=== PATIENT | male | born 1935 | race Caucasian/White ===

== ENCOUNTER 2016-12-14 17:39 | Inpatient (IN) ==
[2016-12-14] MEDS ORDERED: ZOFRAN IV PRN (18:31)
[2016-12-14] MEDS ORDERED: DESYREL PO PRN (18:31)
[2016-12-14] MEDS ORDERED: TYLENOL PO PRN (18:31)
[2016-12-14 18:54] LABS: MANUAL DIFF NEEDED? NO
[2016-12-14 18:58] LABS: BASO% 0.1 % (0.0-0.8); EOS# 0.12 X1000 (0.0-0.7); EOS% 1.3 % (0.0-10.0); HEMATOCRIT 42.5 % (42.0-52.0); HEMOGLOBIN 13.8 g/dL (14.0-18.0); IMM GRAN# 0.02 X1000 (0.0-0.04); IMM GRAN% 0.2 % (0.0-0.5); LYMPH% 9.8 % (20.5-51.1); MCH 33.9 PG (27-31); MCHC 32.5 g/dL (33-37); MCV 104.4 FL (81-99); MONO# 0.59 X1000 (0.11-0.59); MONO% 6.4 % (1.7-9.3); MPV 8.1 FL (7.4-10.4); NEUT% 82.2 % (42.2-75.2); PLT 270 X1000 (130-400); RBC 4.07 XMIL (4.7-6.1)
[2016-12-14 19:24] LABS: ALBUMIN 3.5 g/dL (3.5-5.0); CALCIUM 8.7 mg/dL (8.8-10.2); POTASSIUM 3.4 mmol/L (3.5-5.1); TOTAL BILIRUBIN 0.41 mg/dL (0.20-1.00); TOTAL PROTEIN 6.8 g/dL (6.3-8.3)
[2016-12-14] MEDS ORDERED: CAPOTEN PO SCH (21:00)
[2016-12-14] MEDS: SEROQUEL PO SCH (21:28)
[2016-12-14] MEDS: CORTEF PO SCH (21:28)
[2016-12-14] MEDS: LOPRESSOR PO SCH (21:28)
[2016-12-14] MEDS: NS 1,000 ML IV SCH (21:29)
[2016-12-14] MEDS: CALTRATE 600 + D PO SCH (21:29)
[2016-12-15] MEDS: CATAPRES PO PRN ×2 (01:05→20:36)
[2016-12-15] MEDS ORDERED: LOPRESSOR PO ONE (04:31)
[2016-12-15] MEDS: PRILOSEC PO SCH (06:32)
--- NOTE | 2016-12-15 06:32 | Diag Imaging Result Doc PS360 ---
EXAM: CHEST-2 VIEWS HISTORY: HTN TECHNIQUE: COMPARISON: 12/13/2016. FINDINGS: The lungs are hyperexpanded. Sternal wires are present. The heart is not enlarged. The pulmonary vessels are small. There is a small right pleural effusion. Atelectasis versus a small infiltrate in the right costophrenic angle. A granuloma is found in the left costophrenic angle. IMPRESSION: 1.Emphysema 2.Small right pleural effusion 3.Infiltrate or atelectasis in the right base Electronically signed by Marlo Villanueva 12/15/2016 6:30 AM
[2016-12-15] MEDS: CAPOTEN PO SCH ×3 (08:39→23:54)
[2016-12-15] MEDS: LOPRESSOR PO SCH ×2 (08:39→20:30)
[2016-12-15] MEDS: HYTRIN PO SCH (08:39)
[2016-12-15] MEDS: CALTRATE 600 + D PO SCH ×2 (08:39→20:30)
[2016-12-15] MEDS: PROSCAR PO SCH (08:39)
[2016-12-15] MEDS: VITAMIN D PO SCH (08:40)
[2016-12-15] MEDS: POTASSIUM CHLORIDE 20 MEQ/SWI 20 MEQ/100 ML IVPB IV SCH ×2 (08:40→18:42)
[2016-12-15] MEDS: CORTEF PO SCH ×2 (08:40→20:36)
[2016-12-15] MEDS: SYNTHROID PO SCH (08:47)
[2016-12-15] MEDS: NITROGLYCERIN TOP SCH ×3 (08:47→20:29)
[2016-12-15] MEDS: NS 1,000 ML IV SCH (08:47)
--- NOTE | 2016-12-15 08:51 | PROGRESS NOTE ---
DATE: 12/15/2016 SUBJECTIVE: Mr. Vic Bergman was admitted to [facility] with persistent nausea, dry heaves, increasing reflux, sour brash, and early satiety. He had also had dysphagia to solids. He denied any hematochezia or melena. Blood counts were stable. His hemoglobin was 13.8 and his hematocrit was 42.5. He reported that the nausea intensified when he ate yesterday. He has been scheduled for an EGD today. He has a longstanding history of labile hypertension secondary to renal artery stenosis. His blood pressure is fluctuating wildly. This morning his blood pressure was 237/78. He denies any chest pain, palpitations, or TIA- type symptoms. OBJECTIVE: Vital Signs: Temperature 98.2 degrees, pulse 63, respirations 22, BP 237/78. CV: Regular rate and rhythm. Lungs clear. Abdomen: Jigu-sa-[id number] epigastric tenderness with deep palpation. No rebound or guarding. ASSESSMENT AND PLAN: 1. Chronic nausea with refractory reflux symptoms. His amylase and lipase were within normal limits. He has had a previous cholecystectomy. I am concerned that he has either some sort of gastric outlet obstruction or ulcer disease. We will continue omeprazole and proceed with an esophagogastroduodenoscopy today. Certainly, if he has gastritis or an ulcer, we could consider adding Carafate. 2. Primary hypothyroidism. His free T4 was elevated at 1.74. He has had palpitations. I am going to reduce the dosage of levothyroxine to 75 mcg daily and recheck a TSH and free T4 in 3 months. 3. Labile hypertension secondary to renal artery stenosis. I am going to continue Lopressor 50 mg b.i.d., Plendil 10 mg daily, and continue clonidine on a p.r.n. basis. I am going to increase the captopril to 50 mg t.i.d. I will add Tenex 1 mg b.i.d. cc: Shant Lozano MD
[2016-12-15] MEDS ORDERED: SYNTHROID PO SCH (09:00)
[2016-12-15] MEDS ORDERED: CATAPRES PO SCH (09:00)
[2016-12-15] MEDS ORDERED: ASPIRIN PO SCH (09:00)
[2016-12-15] MEDS: PLENDIL PO SCH (09:25)
--- NOTE | 2016-12-15 13:59 | CONSULTATION ---
DATE OF CONSULTATION: 12/15/2016 REASON FOR CONSULTATION: nausea, dysphagia, abdominal pain. HISTORY OF PRESENT ILLNESS: This is an 81-year-old white male who we have seen in the office in the past, last seen in 2011. The patient reports symptoms of persistent nausea. He has had dry heaves and increasing reflux. He has early satiety. He has noted dysphagia. He has had dysphagia off and on for some time, per his report. He does occasionally get strangled. He reports one time getting choked. His last EGD by our records was in September 2015. He had an EGD and flexible sigmoidoscopy while in the hospital. Findings showed surgical changes of the stomach. History of gastrectomy and gastroenterostomy. He had a normal flexible sigmoidoscopy at that time. The patient denies any blood in his stool or black stools. He does report chronic diarrhea since his gastrectomy and uses Lomotil as needed. He complains of gagging and dry heaving. He has lost some weight. He complains of vertigo. He has had chronic elevated blood pressure with a history of renal artery stenosis. Dr. Lozano has been adjusting his blood pressure medicine. Was also found to have an elevated free T4 and his thyroid medication was decreased. Levothyroxine was decreased to 75 mcg daily. The patient denies chest pain, but he reports some shortness of breath. He has had palpitations in the past. He reports mild abdominal discomfort. PAST MEDICAL HISTORY: Hypertension, history of renal artery stenosis, coronary artery disease. PAST SURGICAL HISTORY: Cholecystectomy, gastric surgery in 2004, heart surgery. ALLERGIES: To Reglan, unknown reaction. HOME MEDICATIONS: Seroquel 50 mg every night. Aspirin 325 mg daily. Vitamin D 5000 units daily. Desyrel 50 mg every night. Hytrin 10 mg every day. Prilosec 40 mg daily. Lopressor 50 mg twice a day. Antivert 25 mg 3 times a day. Levothyroxine 88 mcg daily, which has recently been decreased to 75 mcg daily. Cortef 10 mg twice a day. Lasix 40 mg daily. Finasteride 5 mg daily. Plendil 10 mg daily. Aricept 5 mg every day. Capoten 50 mg twice daily. Iron 1 daily. SOCIAL HISTORY: Denies tobacco use. He quit over 40 years ago. No reported alcohol use. He lives alone. His daughter is here from out of state. She is at the bedside. REVIEW OF SYSTEMS: Per HPI. PHYSICAL EXAMINATION: Vital Signs: Temperature 98.2 degrees, pulse 58, respirations 22, blood pressure 189/66. General: Patient is awake, alert, and in no acute distress. HEENT: Normocephalic, atraumatic. Pupils equal, round, reactive to light. Sclerae nonicteric. Cardiovascular: Regular rate and rhythm. Respiratory: Lung sounds are essentially clear. Abdomen: With some mild epigastric tenderness. Otherwise, soft with positive bowel sounds. X-RAYS: Chest x-ray showed emphysema, small right pleural effusion, infiltrate or atelectasis in the right base. LABORATORY: Hematology: White count 9.15, hemoglobin 13.8, hematocrit 42.5, MCV 104.4, platelets 270,000. Chemistry: Sodium 141, potassium 3.4, chloride 95, CO2 of 32, BUN 19, creatinine 1.2, glucose 120, total bilirubin 0.41 AST 22, ALT 13, alkaline phosphatase 65, amylase 38, lipase 13, free T4 1.74. ASSESSMENT AND PLAN: 1. Chronic nausea, reflux. 2. Dysphagia. 3. Hypothyroidism with recent elevated T4. Levothyroxine has been decreased to 75 mcg daily. 4. Hypertension. He has a history of renal artery stenosis. His blood pressure medications have been adjusted and he is currently receiving Lopressor 50 mg twice a day, Plendil 10 mg daily, increasing captopril to 50 mg 3 times a day, and adding Tenex 1 mg twice a day by Dr. Lozano. PLAN: Continue supportive care. Continue current medications. Continue PPI. We will plan for an EGD and further plans will be made according to findings. I have discussed the procedure along with benefits and risks with the patient and the daughter. I have discussed this case with Dr. Mcgraw. Thank you for this consultation. Dictated by BOLIVAR Anglin for Rolando Mcgraw MD cc: BOLIVAR Hudson MD M. Neel Roberts, MD
[2016-12-15] MEDS ORDERED: VERSED ONE (15:17)
[2016-12-15] MEDS ORDERED: DIPRIVAN 1% ONE (15:18)
--- NOTE | 2016-12-15 17:14 | PROGRESS NOTE ---
DATE: 12/15/2016 Mr. Bergman has a history of hypertension secondary to renal artery stenosis. His blood pressure is trending down but is still too high. I added Tenex 1 mg p.o. b.i.d. and increased the Capoten to 50 mg t.i.d. This afternoon his blood pressure was 189/66. He denies any chest pain, palpitations, or anginal equivalents. He had an EGD with dilatation of the Schatzki's ring. He is afebrile. Pulse 58, respirations 19, BP 189/66. CV: Regular rate and rhythm. Lungs: Clear. Abdomen: Soft, nontender, with active bowel sounds. ASSESSMENT AND PLAN: 1. Gastroesophageal reflux disease with dysphagia status post dilatation of a Schatzki's ring. We will continue omeprazole 40 mg daily. I will begin a GI soft diet. I will recheck a hemoglobin and hematocrit in the morning. If he is able to tolerate a GI soft diet we will plan for discharge to home in the morning. 2. Labile hypertension secondary to renal artery stenosis. His blood pressure is trending down but is still too high. I do not think that it would be safe to send him home until I see more stability with his blood pressure. We will convert him to inpatient status and continue to monitor him overnight. We will make further adjustments in his medications as indicated. At this point in time given his clinical presentation and comorbid conditions, I believe that continued hospitalization is necessary. I anticipate that he will be in the hospital for at least 2 midnights and I will, therefore, place him in inpatient status. cc: Shant Lozano MD
--- NOTE | 2016-12-15 18:10 | OPERATIVE NOTE ---
PROCEDURE DATE: 12/15/2016 PROCEDURE: Esophagogastroduodenoscopy and esophageal dilation. PREOPERATIVE DIAGNOSIS: Dysphagia, nausea. 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 HISTORY: This is an 81-year-old gentleman admitted to hospital with complaints of dysphagia and nausea. EGD was done for diagnostic as well as therapeutic purposes. PROCEDURE: Informed consent was obtained from the patient. Procedure risks, benefits, alternatives were explained in layman's terms. He understood. All his pertinent questions were answered. Patient was brought to the endoscopy unit and was premedicated as per Anesthesia. After adequate sedation, while he was lying in left lateral position, the gastroscope was introduced into the posterior pharynx and advanced under direct vision into the esophagus. Esophagus in its entire length appeared to be normal except at the GE junction which was noted at about 39 cm from the incisor there was an esophageal ring noted. The ring was about 12-14 mm in diameter. It appeared to be a Schatzki's ring. No varices or tumor or stenosis noted. The scope could be easily passed through the esophagus into the stomach. Stomach was examined on both straight and retroflexed view, which revealed surgical changes suggestive of gastroenterostomy. The anatomy is suggestive of Billroth type II surgery. I was able to advance the scope both in afferent and efferent limb of the Erica which did not reveal any pathology. The anastomosis was widely patent. The scope was withdrawn into the esophagus where the ring was dilated using a TTS balloon. The esophagus was dilated to 18 and then 19 and then up to 20 mm. One minute of distention was achieved and scope was withdrawn. There appeared to be small mucosal tear at the ring. The scope was then removed. Patient tolerated the procedure, no complications noted. Patient was then transferred to the recovery area in a stable condition. IMPRESSION: 1. Esophageal ring. 2. 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 RECOMMENDATION: At this point, I would continue him on proton pump inhibitor and Carafate. Recommended to keep his head elevated to counter the reflux. Follow up with me after discharge from the hospital. cc: MD Shant Dotson MD
[2016-12-15] MEDS: TENEX PO SCH ×2 (18:44→20:30)
[2016-12-15] MEDS: ANTIVERT PO SCH ×3 (18:48→23:53)
[2016-12-15] MEDS: ICAR-C PO SCH (18:48)
[2016-12-15] MEDS: DESYREL PO SCH (20:30)
[2016-12-15] MEDS: SEROQUEL PO SCH ×2 (20:30)
[2016-12-16] MEDS: NS 1,000 ML IV SCH ×2 (01:05→15:19)
[2016-12-16] MEDS: NITROGLYCERIN TOP SCH ×4 (02:21→20:07)
[2016-12-16] MEDS: PRILOSEC PO SCH (06:41)
[2016-12-16] MEDS: SYNTHROID PO SCH (06:41)
[2016-12-16 06:47] LABS: HEMATOCRIT 33.8 % (42.0-52.0)
[2016-12-16 07:13] LABS: AGAP 10; BUN 15 mg/dL (8-22); CALCIUM 8.2 mg/dL (8.8-10.2); CHLORIDE 104 mmol/L (98-107); COSMO 287; POTASSIUM 3.5 mmol/L (3.5-5.1); SODIUM 144 mmol/L (136-145); TCO2 30 mmol/L (25-35)
[2016-12-16] MEDS: ICAR-C PO SCH (09:38)
[2016-12-16] MEDS: ANTIVERT PO SCH ×3 (09:38→17:56)
[2016-12-16] MEDS: PLENDIL PO SCH (09:38)
[2016-12-16] MEDS: HYTRIN PO SCH (09:39)
[2016-12-16] MEDS: CAPOTEN PO SCH ×3 (09:39→17:55)
[2016-12-16] MEDS: PROSCAR PO SCH (09:39)
[2016-12-16] MEDS: TENEX PO SCH ×2 (09:40→20:09)
[2016-12-16] MEDS: CORTEF PO SCH ×2 (09:40→20:07)
[2016-12-16] MEDS: VITAMIN D PO SCH (09:40)
[2016-12-16] MEDS: CALTRATE 600 + D PO SCH ×2 (09:40→20:07)
[2016-12-16] MEDS: LOPRESSOR PO SCH ×2 (09:52→20:07)
--- NOTE | 2016-12-16 10:37 | PROGRESS NOTE ---
DATE: 12/16/2016 SUBJECTIVE: Mr. Bergman has a history of hypertension secondary to renal artery stenosis. Blood pressure is trending down but is still a little bit too high. This morning, his blood pressure was 189/71. He denies any chest pain, palpitations, or anginal equivalents. He is tolerating a GI soft diet without nausea, vomiting, or dysphagia. Dr. Mcgraw performed an EGD with dilatation of a Schatzki's ring. He is still a little bit weak and unsteady on his feet. PHYSICAL EXAMINATION: Vital Signs: Temperature 97.7 degrees, pulse 60, respirations 16, BP 189/71. CV: Regular rate and rhythm. Lungs: Clear. Abdomen: Soft, nontender, with active bowel sounds. ASSESSMENT AND PLAN: 1. Hypertension secondary to renal artery stenosis. His blood pressure is trending down. We just added Tenex 1 mg twice a day yesterday. We will continue Lopressor, Plendil, Capoten, and use clonidine on an as needed basis. 2. Gastroesophageal reflux disease, status post dilatation of a Schatzki's ring. We will continue a gastrointestinal soft diet. We will continue aggressive acid suppression with omeprazole. I will add Zantac 150 mg twice a day. 3. General debility. I will consult physical therapy for an evaluation. cc: Shant Lozano MD
--- NOTE | 2016-12-16 15:03 | PROGRESS NOTE ---
DATE: 12/16/2016 SUBJECTIVE: Talked with the patient's daughter who is at the bedside. Patient is asleep, in no acute distress. She states he is eating better, he has had less complaints of dysphagia. OBJECTIVE: VITAL SIGNS: Temperature 97.7 degrees, pulse 60, respiration 16, blood pressure 189/71. LABORATORY: Hemoglobin 11.3, hematocrit 33.8. Chemistry: Sodium 144, potassium 3.5, chloride 104, CO2 30, BUN 15, creatinine 0.8, glucose 84. IMAGING: EGD done on 12/15/2016 showed an esophageal ring with dilation performed and surgical changes of the stomach suggestive of Billroth II gastrectomy. ASSESSMENT AND PLAN: 1. Dysphagia, improved after esophageal dilation. 2. Esophageal ring status post dilation. 3. History of gastrectomy. 4. Renal artery stenosis. 5. Hypertension. PLAN: His blood pressure has been elevated in the hospital. Dr. Lozano is adjusting his blood pressure medications. He has added some medications for his blood pressure. Continue PPI once discharged, and continue Carafate for approximately 1 month and then he can taper and discontinue, but continue PPI. Follow up in the office after discharge in approximately 2-3 weeks. Recommended to call sooner if he has any problems. I have discussed this plan with the daughter and she voices understanding. Dictated by BOLIVAR Anglin for Rolando Mcgraw MD cc: BOLIVAR Hudson MD M. Neel Roberts, MD
[2016-12-16] MEDS: SEROQUEL PO SCH ×2 (20:07)
[2016-12-16] MEDS: DESYREL PO SCH (20:07)
[2016-12-16] MEDS: ZANTAC PO SCH (20:07)
[2016-12-17] MEDS: NS 1,000 ML IV SCH (01:44)
[2016-12-17] MEDS: NITROGLYCERIN TOP SCH ×2 (03:30→08:38)
[2016-12-17] MEDS: CATAPRES PO PRN (05:04)
[2016-12-17] MEDS: SYNTHROID PO SCH (06:09)
[2016-12-17] MEDS: PRILOSEC PO SCH (06:09)
[2016-12-17] MEDS: CAPOTEN PO SCH (10:43)
[2016-12-17] MEDS: HYTRIN PO SCH (10:43)
[2016-12-17] MEDS: TENEX PO SCH (10:43)
[2016-12-17] MEDS: ICAR-C PO SCH (10:43)
[2016-12-17] MEDS: CALTRATE 600 + D PO SCH (10:43)
[2016-12-17] MEDS: PLENDIL PO SCH (10:43)
[2016-12-17] MEDS: ZANTAC PO SCH (10:44)
[2016-12-17] MEDS: ANTIVERT PO SCH (10:44)
[2016-12-17] MEDS: VITAMIN D PO SCH (10:44)
[2016-12-17] MEDS: CORTEF PO SCH (10:44)
[2016-12-17] MEDS: LOPRESSOR PO SCH (10:44)
[2016-12-17] MEDS: PROSCAR PO SCH (10:46)
[2016-12-17 14:48] VITALS: BP 203/67
== END 2016-12-17 14:50 | disposition home or self-care (01) ==
LOC: DIRADM → 3N 18:24
PROVIDERS: ADMIT Internal Medicine; ATTEND Internal Medicine